=== PATIENT | female | born 1985 | race Caucasian/White ===

== ENCOUNTER → 2017-06-25 14:42 | Outpatient (CLI) | payer BC, SELFPAY ==
[2017-06-25 18:09] LABS: Group B Strep DNA By PCR Negative (Negative); Specimen Processing Control PASS
[2017-06-25 18:10] LABS: Internal Control PASS; Probe Check PASS
== END ==
PROVIDERS: Visit Provider Obstetrics & Gynecology
DX: Z34.83 Encounter for supervision of other normal pregnancy, third trimester (principal)
CPT/HCPCS: 87081; 87653

== ENCOUNTER 2017-07-23 08:38 | Inpatient (IN) | payer BC, SELFPAY ==
[2017-07-23 04:55] VITALS: BMI 32.8
--- NOTE | 2017-07-23 08:47 | PCM.HPOB.BLA ---
- Problem List (1) 39 weeks gestation of Status: Acute (2) Labor established Status: Acute History and Physical Date of Admission: 07/23/17 Date: 07/23/2017 Name: ROXY YEAGER Age: 32 Date of : 1985 HISTORY OF PRESENT ILLNESS: On 07/23/2017, Roxy Yeager, a 32 year old female 2 0 0 0 2 at 39 5/7 weeks gestation present with complaint of contractions since 6pm yesterday. She notes they were every 3-5 minutes on arrival, but now spaced. Denies leaking of fluid, vaginal bleeding. Fetus is active. uncomplicated. 20w anatomy scan was limited, however, complete views obtained at 24w and wnl. She transferred care in second trimester from [facility]. LABS 12/18/16: AB positive Rubella Ab 2.56 - immune RPR nr HBsAg neg TSH 1.22 uIU/ml 05/01/17 1h GCT 112 06/25/17 GBS negative ALLERGIES: No Known Drug Allergies MEDICATIONS HISTORY: None REVIEW OF SYSTEMS: GENERAL - Denies fever, or chills SKIN - Denies skin changes EYES - Denies visual changes EARS - Denies difficulty hearing NOSE - Denies nasal congestion or bleeding MOUTH - Denies sore throat or difficulty swallowing NECK - Denies pain or swelling RESPIRATORY - Denies shortness of breath or wheezing CARDIOVASCULAR - Denies palpitations or chest pain GASTROINTESTINAL - Denies nausea, vomiting, diarrhea, constipation GENITOURINARY - Denies dysuria, frequency of urination, incontinence of urine MUSCULOSKELETAL - Denies joint or muscle pain NEUROLOGICAL - Denies localized numbness or weakness PSYCHIATRIC - Denies depression or anxiety ENDOCRINE - Denies heat or cold intolerance, weight loss or gain HEMATO-IMMUNOLOGIC - Denies excesive bleeding with cuts PAST HISTORY: Breast/Ovarian/Colon Cancers - Aunt had Breast Cancer Infections - Chicken pox Illnesses - no serious past illnesses Accidents - no injuries of consequence History of Abnormal PAPS - NO Hospitalizations - Childbirth SURGICAL HISTORY: 1. 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 Illicit Drug Use - denies use of street drugs Residence - lives with Place of - [place], [place] Hours Worked - PT Spouse-Sig Other Name - Hector Yeager Spouse-Sig Other Occupation - [email or web address] Spouse-Sig Other Phone No - [phone] Children Name(s) - Delmi Rojas CONSTITUTIONAL - NAD, well nourished, and well developed SKIN - No rash, lesions, or ulcers HEENT - normocephalic, atraumatic, sclerae anicteric LUNGS - CTA x2 without wheezes, crackles or rales CARDIAC - Regular rate and rhythm without rubs, murmurs, or gallops ABDOMEN - Gravid, without other distention, masses, rebound, or guarding; EXTREMITIES - No edema or calf tenderness NEUROLOGICAL - normal gait, normal balance, normal motor PSYCHIATRIC - A and O to time, place, person, mood and affect EFM - 130, moderate variability, + accelerations, no decelerations TOCO - 2/10 min EFW - 3100g DETAILED PELVIC EXAM External Genitial Vagina - normal appearance and no lesions Urethra/Urethral Meatus - normal appearance Bladder - no tenderness Cervix - 5/80/-2, CEPHALIC Uterus - 39w size Adnexa - limited by ASSESSMENT: 1. Encounter For Supervision Of Other Normal , Third Trimester 2. 39 weeks gestation 3. Labor PLAN Admit in labor Cat I FHR. Intermittent monitoring if desires Obtain GC/CT Discussed potential delivery risks and complications including but not limited to bleeding or hemorrhage, possibly requiring blood transfusion or further surgery, possible hysterectomy, infection, VTE, possible vacuum or section, possible bowel or urinary injury related to section, maternal laceration or episiotomy, possible need for internal monitoring, labor augmentation. Blood transfusion acceptable LARC declined, form on chart reviewed Will proceed with amniotomy for labor augmentation - r/b discussed and patient desires to proceed.
[2017-07-23] MEDS: Lactated Ringers 1,000 ML 50 ML IV ×2 (08:50→11:03)
[2017-07-23 09:02] LABS: Hematocrit 36.2 % (37-47); Hemoglobin 11.9 g/dl (12.0-15.0); Mean Corp Hgb Conc 32.9 g/gl (32-36); Mean Corpuscular Hgb 29.9 pg (27.0-32.0); Platelet Count 215 K/mm3 (150-450); RBC Distribution Width CV 13.3 % (11.6-14.6); RBC Distribution Width SD 43.6 fl (35.1-43.9); Red Blood Count 3.98 M/mm3 (4.2-5.4); White Blood Count 14.1 K/mm3 (4.4-11.0)
--- NOTE | 2017-07-23 09:02 | HP.PCM_ITS ---
- Problem List (1) 39 weeks gestation of Status: Acute (2) Labor established Status: Acute History and Physical Date of Admission: 07/23/17 Date: 07/23/2017 Name: ROXY YEAGER Age: 32 Date of : 1985 HISTORY OF PRESENT ILLNESS: On 07/23/2017, Roxy Yeager, a 32 year old female 2 0 0 0 2 at 39 5/7 weeks gestation present with complaint of contractions since 6pm yesterday. She notes they were every 3-5 minutes on arrival, but now spaced. Denies leaking of fluid, vaginal bleeding. Fetus is active. uncomplicated. 20w anatomy scan was limited, however, complete views obtained at 24w and wnl. She transferred care in second trimester from [facility]. LABS 12/18/16: AB positive Rubella Ab 2.56 - immune RPR nr HBsAg neg TSH 1.22 uIU/ml 05/01/17 1h GCT 112 06/25/17 GBS negative ALLERGIES: No Known Drug Allergies MEDICATIONS HISTORY: None REVIEW OF SYSTEMS: GENERAL - Denies fever, or chills SKIN - Denies skin changes EYES - Denies visual changes EARS - Denies difficulty hearing NOSE - Denies nasal congestion or bleeding MOUTH - Denies sore throat or difficulty swallowing NECK - Denies pain or swelling RESPIRATORY - Denies shortness of breath or wheezing CARDIOVASCULAR - Denies palpitations or chest pain GASTROINTESTINAL - Denies nausea, vomiting, diarrhea, constipation GENITOURINARY - Denies dysuria, frequency of urination, incontinence of urine MUSCULOSKELETAL - Denies joint or muscle pain NEUROLOGICAL - Denies localized numbness or weakness PSYCHIATRIC - Denies depression or anxiety ENDOCRINE - Denies heat or cold intolerance, weight loss or gain HEMATO-IMMUNOLOGIC - Denies excesive bleeding with cuts PAST HISTORY: Breast/Ovarian/Colon Cancers - Aunt had Breast Cancer Infections - Chicken pox Illnesses - no serious past illnesses Accidents - no injuries of consequence History of Abnormal PAPS - NO Hospitalizations - Childbirth SURGICAL HISTORY: 1. 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 Drug Use - denies use of street drugs Residence - lives with Place of - [place], [place] Hours Worked - PT Spouse-Sig Other Name - Hector Yeager Spouse-Sig Other Occupation - [employer] Spouse-Sig Other Phone No - [phone] Children Name(s) - Delmi Rojas CONSTITUTIONAL - NAD, well nourished, and well developed SKIN - No rash, lesions, or ulcers HEENT - normocephalic, atraumatic, sclerae anicteric LUNGS - CTA x2 without wheezes, crackles or rales CARDIAC - Regular rate and rhythm without rubs, murmurs, or gallops ABDOMEN - Gravid, without other distention, masses, rebound, or guarding; EXTREMITIES - No edema or calf tenderness NEUROLOGICAL - normal gait, normal balance, normal motor PSYCHIATRIC - A and O to time, place, person, mood and affect EFM - 130, moderate variability, + accelerations, no decelerations TOCO - 2/10 min EFW - 3100g DETAILED PELVIC EXAM External Genitial Vagina - normal appearance and no lesions Urethra/Urethral Meatus - normal appearance Bladder - no tenderness Cervix - 5/80/-2, CEPHALIC Uterus - 39w size Adnexa - limited by ASSESSMENT: 1. Encounter For Supervision Of Other Normal , Third Trimester 2. 39 weeks gestation 3. Labor PLAN Admit in labor Cat I FHR. Intermittent monitoring if desires Obtain GC/CT Discussed potential delivery risks and complications including but not limited to bleeding or hemorrhage, possibly requiring blood transfusion or further surgery, possible hysterectomy, infection, VTE, possible vacuum or section, possible bowel or urinary injury related to section, maternal laceration or episiotomy, possible need for internal monitoring, labor augmentation. Blood transfusion acceptable LARC declined, form on chart reviewed Will proceed with amniotomy for labor augmentation - r/b discussed and patient desires to proceed.
[2017-07-23 09:03] LABS: Scan Indicated on CBC? Y/N NO
[2017-07-23 11:42] LABS: Chlamydia Trachomatis by PCR Negative (Negative); Neisserai gonorrhoeae by PCR Negative (Negative); Probe Check PASS; Sample Adequacy Control PASS; Specimen Processing Control PASS
[2017-07-23] MEDS: fentaNYL-bupivacaine (epidural) 100 ML BAG EPIDURAL (12:00)
[2017-07-23 13:02] LABS: HIV - WCH Non-Reactive (Nonreactive)
[2017-07-23] MEDS: Oxytocin 30 units/NS 500 ml 30 UNITS/500 ML IV.SOLN 334 UNITS IV (14:15)
[2017-07-23] MEDS: Methylergonovine 0.2 MG/ML Ampul IM (14:18)
--- NOTE | 2017-07-23 14:26 | PCM.OB.VAG ---
- Problem List (1) 39 weeks gestation of Status: Acute (2) Labor established Status: Resolved (3) (spontaneous vaginal delivery) Status: Acute Vaginal Delivery Maternal Presentation: Active Labor amniotomy augmentation Amniotic Membrane Rupture Type: Artificial Rupture of Membrane time: 07/23/17 0909h Amniotic Fluid Description: Clear Final BRIE: 07/25/17 Final BRIE Source: US <20 weeks Gestational age: 39 Weeks and 5 Days Date of Procedure: 07/23/17 Pre-Operative Diagnosis: 39 5/7wga, labor Post-Operative Diagnosis: 39 5/7wga, labor Surgery/ Procedure Performed: Spontaneous Vaginal Delivery Anesthesiologist: Silas Vitale Type of Anesthesia: Epidural Description of Procedure: Patient was FD/+1. She pushed over a few contractions to delivery head in BABAR. A nuchal cord was reduced. shoulders delivered with ease to reveal a vigorous female infant. The was placed on the maternal abdomen and further attended by nursery personnel. The cord was doubly clamped and cut after 2 minutes approximately. The placenta delivered spontaneously and appeared intact on inspection. An intrauterine exam was performed and fundal massage with excellent fundal tone. IV pitocin was administered. Presentation: Vertex Placental Delivery Description: Spontaneous Placenta Disposition: [facility] Cord Vessel Description: 3 Vessels Nuchal Cord Compression: Without compression Cord Entanglement: Around neck x 1, loose Drain: Simon to straight drain Estimated Blood Loss: 450 ml A gender: Female (1 minute): 8 (5 minute): 9 Episiotomy Description: None Laceration: None Medications given after delivery: IV Pitocin Complications: None
--- NOTE | 2017-07-23 14:35 | DCINST_ITS ---
Discharge Diet: No Restrictions Discharge Activity: Return to Normal Activity, May Shower, May Take a Tub Bath May resume sexual activity in: 6 weeks Lifting Restrictions: 20 lb Call your doctor if you observe: Fever of 101 or Higher, Inability to urinate, Inability to have a bowel movement, Using more than one pad per hour, Shortness of breath, Chest pain, Calf discomfort, Uncontrolled pain Additional Instructions: If you experience any of the following, contact your healthcare provider. * Bleeding that soaks a pad every hour for 2 hours * Fever 100.4 or higher * Unrelieved incision or abdominal pain * Swelling, redness, discharge or bleeding from your incision or episiotomy site * Your incision begins to separate * Problems urinating (including inability to urinate or burning while urinating) . * Visual changes * Severe headache * Flu-like symptoms * Pain or redness in one of both of your breasts * Pain, warmth, tenderness or swelling in your legs, especially the calf area * Frequent nausea and vomiting * Symptoms of depression or anxiety If you experience any of the following, call 911 or go to the nearest Emergency Room. * Chest pain * Problems breathing * Seizure activity * Partial or complete paralysis of a body part, slurred speech, weakness or drooping of the face, or a sudden inability to walk or hold your balance Allergies/Adverse Reactions: Allergies No Known Allergies Allergy (Verified 07/23/17 04:56) Medications to take at Discharge Docusate Sodium [Colace] 100 mg PO BID PRN PRN #60 cap 07/23/17 Ibuprofen 600 mg PO TID PRN #30 tab 07/23/17 The following prescriptions were given: Docusate Sodium [Colace] 100 mg PO BID PRN PRN #60 cap PRN Reason: Constipation Ibuprofen 600 mg PO TID PRN #30 tab PRN Reason: Pain Orders to be completed after discharge: Electric breast pump Location: None Selected Please Follow Up With: Kai Merrill MD When: 6 weeks
[2017-07-23] MEDS: Oxytocin 30 units/NS 500 ml 30 UNITS/500 ML IV.SOLN 167 UNITS IV (14:45)
[2017-07-23] MEDS: Ibuprofen 600 MG Tablet PO (17:25)
[2017-07-23 19:43] VITALS: BP 118/68; PULSE 78; RESP 15; TEMP 37.6
[2017-07-24] VITALS: BP 102/57; PULSE 79; RESP 18; TEMP 36.6
[2017-07-24] MEDS: Ibuprofen 600 MG Tablet PO ×2 (02:46→12:28)
[2017-07-24 04:00] VITALS: BP 90/36; PULSE 73; RESP 17; TEMP 37.4
--- NOTE | 2017-07-24 07:15 | PCM.PN.OB ---
Patient Problems: Active and Suspected Problems 39 weeks gestation of (Acute) (spontaneous vaginal delivery) (Acute) Subjective: No issues overnight. Denies pain or heavy lochia. Roxy feels well. is nursing well. Objective: AVSS - Physical Exam General: Alert, Oriented x3, Cooperative, No apparent distress HEENT: Atraumatic, Normocephalic Lungs: Clear to auscultation, Normal air movement Cardiovascular: Regular rate, Regular Rhythm, Normal S1, Normal S2 Abdomen: Soft, Non Tender, Non-Distended Extremities: No edema, No Calf Tenderness Neurological: Neuro grossly intact Psych/Mental Status: Normal Affect, Appropriate, Alert and oriented to time, place, person, mood and affect Vital Signs Temp Pulse Resp BP 99.3 F H 73 17 90/36 L 07/24/17 04:00 07/24/17 04:00 07/24/17 04:00 07/24/17 04:00 Oxygen Delivery Method Room Air Weight: 86.636 kg Body Mass Index (BMI) 32.8 Intake and Output for Last 24 Hours 07/22/17 07/23/17 07/24/17 23:59 23:59 23:59 Intake Total 2140 / 2140 Output Total 2200 / 2200 Balance -60 / -60 Laboratory Tests Past 24 Hrs 07/23/17 07/23/17 07/23/17 08:50 08:50 09:25 WBC 14.1 H RBC 3.98 L Hgb 11.9 L Hct 36.2 L MCV 91.0 MCH 29.9 MCHC 32.9 RDW 13.3 RDW Differential 43.6 Plt Count 215 MPV 10.0 Chlam trachomat DNA PCR HIV 1&2 Antibody Non-Reactive N.gonorrhoeae DNA (PCR) Blood Type AB POSITIVE Antibody Screen NEGATIVE 07/23/17 09:40 WBC RBC Hgb Hct MCV MCH MCHC RDW RDW Differential Plt Count MPV Chlam trachomat DNA PCR Negative HIV 1&2 Antibody N.gonorrhoeae DNA (PCR) Negative Blood Type Antibody Screen Medical Necessity - Tobacco Use Smoking Status: Current every day smoker Assessment/Plan Active and Suspected Problems 39 weeks gestation of (Acute) (spontaneous vaginal delivery) (Acute) 32yo PPD#1 s/p doing well. -Rh positive, Rubella immune - -Routine care -Anticipate d/c home later today pending discharge also
[2017-07-24] MEDS: Acetaminophen 325 MG Tablet PO (07:26)
[2017-07-24] MEDS: Senna/Docusate Sodium 1 Tablet PO (07:26)
[2017-07-24 07:50] VITALS: BP 93/52; PULSE 83; RESP 20; TEMP 36.6
[2017-07-24 11:45] VITALS: BP 126/69; PULSE 121; RESP 20; TEMP 36.4
== END 2017-07-24 15:45 | disposition home or self-care (01) | DRG 775 ==
LOC: WPOUT 08:41
PROVIDERS: Admitting Provider Obstetrics & Gynecology; Visit Provider Obstetrics & Gynecology
DX: O69.81X0 Labor and delivery complicated by cord around neck, without compression, not applicable or unspecified (principal); O99.334 Smoking (tobacco) complicating childbirth; F17.210 Nicotine dependence, cigarettes, uncomplicated; Z3A.39 39 weeks gestation of pregnancy; Z37.0 Single live birth
CPT/HCPCS: 59025; 59050; 85027; 86703; 86850; 86900; 87491; 87591; 99218; J7120; G0378

== ENCOUNTER → 2017-09-04 10:15 | Outpatient (CLI) | payer BC, SELFPAY ==
[2017-09-09 10:26] LABS: HPV Reflexed? NOT INDICATED
== END ==
PROVIDERS: Visit Provider Obstetrics & Gynecology
DX: Z12.4 Encounter for screening for malignant neoplasm of cervix (principal)
CPT/HCPCS: 88175; G0145

== ENCOUNTER → 2020-06-02 10:47 | Outpatient (CLI) | payer BC, SELFPAY ==
--- NOTE | 2020-06-02 | IMM_PTH ---
PATIENT: JAIDA YEAGER LOC: [facility] U#:[id number] AGE/SX: 39/F ROOM: RE06/02/[address]: Dr. Kai Merrill MD : 1985 BED: DIS: SPEC #: [id number] RECD: 06/03/20 13:25 STATUS: JV RESammy #: [id number] JEFF: 06/02/20 00:[address]: Kai Merrill DEPT: IMMUNOHISTOCHEMISTRY RECD BY: Janene Rick Tissues: A - Endocervical Procedures: p16 (initial) KI-67 (add) PHYSICIAN & INSTITUTION [place] [id number] SPECIMEN INFORMATION: Tissue Source: A - Four-quad biopsy Clinical Info: R87.612, R87.810 Specimen Number: [id number] CPT code: 94804, 82241 METHODOLOGY: Deparaffinized sections of prefer/formalin-fixed tissue or PAP/DQ stained slides are incubated with monoclonal/polyclonal antibodies/oligonucleotide probes. Localization is made via biotin free immunoperoxidase method. Appropriate controls are performed and reacted as expected. Results on target cell population are indicated in the following table: RESULTS: ANTIBODY / CLONE RESULT Block A P16 (E6H4) positive, focal, patchy Ki-67 (30-9) positive, low These tests were developed and their performance characteristics determined by [facility]. They may not have been cleared or approved by the U.S. Food and Drug Administration. The FDA has determined that such clearance or approval is not necessary. The above immunohistochemical/dualISH markers are ordered and reviewed by the Pathologist. INTERPRETATION: A. Cervix, four-quad biopsy: Focal HPV change/mild squamous dysplasia (LSIL) present. AM:candi 06/07/2020
--- NOTE | 2020-06-02 10:30 | CER_PTH ---
PATIENT: JAIDA YEAGER LOC: [facility] U#:[id number] AGE/SX: 39/F ROOM: RE06/02/[address]: Dr. Kai Merrill MD : 1985 BED: DIS: SPEC #: [id number] RECD: 06/02/20 11:12 STATUS: JV SIOBHAN #: [id number] JEFF: 06/02/20 10:[address]: Kai Merrill DEPT: SURGICAL PATHOLOGY RECD BY: Renetta Barrientos Tissues: A - Uterine cervix, NOS B - Endocervical Procedures: Surgery Specimen Level IV HEADER OPERATION: Colposcopy PRE-OP DIAGNOSIS: R87.612; R87.810 TISSUE SUBMITTED: A - Four-quad biopsy, B - ECC MICROSCOPIC DIAGNOSIS A. Cervix, four-quad biopsy: Squamous metaplasia and chronic inflammation. Focal changes suspicious for HPV cytopathic effect. See comment. B. Endocervix, curettings: Strips of benign superficial endocervix. No evidence of dysplasia. AM:candi 06/03/2020 COMMENT A. Results from immunohistochemistry ([id number]) for surrogate HPV marker (p16) will be reported separately. Case has been reviewed in consultation with Dr. Hdz who concurs with the above diagnosis. [email or web address] MICROSCOPIC DESCRIPTION Slides are reviewed. GROSS DESCRIPTION A - Received in fixative is one container labeled with the patient's name and designated four-quadrant biopsy. The specimen consists of multiple irregular fragments of light sommers soft tissue that in aggregate measure 2.5 x 0.5 x 0.1 cm. The specimen is totally submitted in one cassette. B - Received in fixative is one container labeled with the patient's name and designated ECC. The specimen consists of multiple fragments of hemorrhagic mucoid tissue that in aggregate measure 1 x 1 x 0.2 cm. The specimen is totally submitted in one cassette. / AMEYA:candi 06/02/20 TC:3 CPT: 10225 x2
== END ==
PROVIDERS: Visit Provider Obstetrics & Gynecology
DX: R87.612 Low grade squamous intraepithelial lesion on cytologic smear of cervix (LGSIL) (principal); R87.810 Cervical high risk human papillomavirus (HPV) DNA test positive
CPT/HCPCS: 88305; 88341; 88342